=== PATIENT | female | born 1990 | race Caucasian/White ===

== ENCOUNTER 2024-05-05 06:43 | Emergency (ER) | payer OTHER, SELFPAY ==
--- NOTE | 2024-05-05 08:16 | ED.GENMED ---
History of Present Illness
General
Chief Complaint: Problems
Source: patient and spouse
Exam Limitations: none
Time Seen by Provider: 05/05/24 07:54
Nursing documentation reviewed up to this point in time: agreed with
History of Present Illness
History of Present Illness:
33-year-old female presents emergency room complaining of vaginal bleeding and cramping. She is 12 weeks . G1, P0. Is seen her OB and has had an ultrasound recently. She called her OB and was directed to the emergency department today.
Past History
Past History
ED Past Medical History: None
ED Past Surgical History: None
Social History
Tobacco: Non-smoker
Personal: Single
Family History
Family History: Other (Not relevant)
Phy Exam
Physical Exam
Physical Exam:
Physical Exam
General: no apparent distress, not acutely ill
Neck: supple. no meningeal signs. normal posterior pharynx
Heart: equal radial pulses.
HEENT: EOMI
Lungs: no acute respiratory distress.
Abdomen: normal bowel sounds. not tender. no CVAT
Neuro: alert and oriented. no focal neurological deficits
Skin: no rash
Psychiatric: well kept. interactive and cooperative
Extremities: no edema. good distal pulses
Course
Orders/Labs/Results
Orders:
Orders
05/05/24 07:54
Type+Screen Urgent
HCG, Beta Quantitative [Beta HCG Quantitative] Urgent
Is this a screen?: No
05/05/24 07:55
Complete Blood Count/With Diff Urgent
05/05/24 07:56
US 1st Trimester Urgent
Comment: for placement services
Reason For Exam: vaginal bleeding, 12 wks preg
05/05/24 07:57
Lactated Ringers [Lr] 1,000 ml IV BOLUS
05/05/24 08:10
Vital Signs
Initial and Last Documented VS:
Initial Vital Signs
Temp
98.2 F
05/05/24 06:50
Last Documented Vital Signs
Temp Pulse Resp BP Pulse Ox
98.2 F 89 18 112/70 100
05/05/24 06:50 05/05/24 10:00 05/05/24 10:00 05/05/24 10:00 05/05/24 10:00
Information
Weeks gestation: Weeks: (12)
Location: Location: ([facility])
MDM/Problems Addressed
Differential Diagnosis Includes:
Threatened miscarriage, Rh incompatibility
MDM/Problems Addressed:
33-year-old female with third miscarriage, vaginal bleeding, a positive blood type per patient history from outpatient labs. Discussed with OB, who recommends outpatient follow-up.
*Radiology
Radiology exam reviewed: radiology read reviewed (Ultrasound shows 12-week 2-day IUP with heart rate 156)
*Pulse Oximetry
Patient hypoxic: no
*Critical Care Note
Total Time (30-74mins, 75-104mins- exclusive of procedures): Not Applicable
Data Reviewed
Review of Other/Old Records Reveals: Labs (A positive blood type)
Source: patient and records
Patient Management
Discussion with other providers: Wax Blender (BAG SEALER, Dr. Shah, recommends discharge with outpatient follow-up)
Escalation/DeEscalation of care consider admission/obs:
Admit not indicated
ED Attending Note
-
Portions of this chart may have been created with voice recognition software.� Occasional wrong word or��sound alike� substitutions may have occurred due to the inherent limitations of voice recognition software.
Discharge Plan
Departure
Patient Disposition: Home (Routine Discharge)
Date of Disposition: 05/05/24
Time of Disposition: 10:10
Patient with high blood pressure during this ER visit?: No
Condition: Good
Discharge Problem:
Threatened miscarriage
Instructions: Threatened Miscarriage (DC)
Prescriptions:
No Action
ibuprofen 800 MG tablet
800 mg PO Q6HPRN PRN (Reason: ain) Qty: 14 0RF
Referrals:
Herb Koo I., DO [Family Provider] -
Parul Rosas, [Active] - Call in 1-3 days for appt
Interventions
Interventions:
*Risk Screen - Suicide Last Done: 05/05/24 07:35
*General Assessment Last Done: 05/05/24 07:35
*Neglect/Abuse Screening Last Done: 05/05/24 06:50
ED- Fall Risk Assessment Last Done: 05/05/24 07:35
*Nursing Disposition Last Done: 05/05/24 10:38
ED-Female Genitourinary Assessment Last Done: 05/05/24 07:35
Discharge Date and Time
Discharge Date/Time: 05/05/24 10:30
Print Language: THAI
[2024-05-05 10:00] VITALS: BP 112/70
== END 2024-05-05 10:30 | disposition home or self-care (01) ==
LOC: EMR 06:43
PROVIDERS: EMERGENCY PHYSICIAN Emergency Medicine; FAMILY PHYSICIAN Internal Medicine
DX: O20.0 Threatened abortion (principal); Z3A.12 12 weeks gestation of pregnancy
CPT/HCPCS: 99284; 76801

== ENCOUNTER → 2024-05-09 08:47 | Outpatient (REF) | payer OTHER, SELFPAY | LOC: PNTC 08:47 | PROVIDERS: ATTENDING PHYSICIAN Student in an Organized Health Care Education/Training Program | DX: Z36.0 Encounter for antenatal screening for chromosomal anomalies (principal); Z36.82 Encounter for antenatal screening for nuchal translucency | CPT/HCPCS: 76801; 76813 ==

== ENCOUNTER 2024-05-11 13:42 | Day surgery (SDC) | payer OTHER, SELFPAY ==
[2024-05-11] VITALS (15 sets, daily range): BP systolic 108–118; BP diastolic 68–78; BMI 26.1
--- NOTE | 2024-05-11 09:06 | ED.GENMED ---
History of Present Illness
<Denia Goddard PA-C - Last Filed: 05/11/24 12:19>
General
Chief Complaint: Problems
Source: patient
Exam Limitations: none
Time Seen by Provider: 05/11/24 09:03
Nursing documentation reviewed up to this point in time: agreed with
History of Present Illness
History of Present Illness:
33-year-old female who is 12 weeks presents emergency department today with vaginal bleeding and cramping for the past week. Patient reports that she was seen in our emergency department a few days ago for this issue and had normal
ultrasound 2 days ago as well as in the emergency department on Tuesday. Patient also notes that she noted normal heart tones yesterday. She is Rh+. She notes that the bleeding got a lot heavier starting yesterday and noted that her cramping a
lot more frequent and severe, and this morning the cramping became constant. She also has intermittent lightheadedness and dizziness as well as nausea. She has had no vomiting. She has had no syncopal episodes. She currently denies any dizziness
or lightheadedness in the hospital bed currently but states that she walk around she will feel this. She follows with [facility] and saw Dr. Rosas yesterday in the office and was told to be to the ER should her bleeding acutely worsen.
Patient has no chronic medical conditions other than complex migraines which she will get every 1 to 2 years. She takes no daily medications other than prenatals.
Past History
<Denia Goddard PA-C - Last Filed: 05/11/24 12:19>
Past History
ED Past Medical History: None
ED Past Surgical History: None
Social History
Tobacco: Non-smoker
Personal: Single
Family History
Family History: Other (Not relevant)
Review of Systems
<Denia Goddard PA-C - Last Filed: 05/11/24 12:19>
Review of Systems
All Other Systems: ROS reviewed and negative except as documented in HPI and ROS
Phy Exam
<Denai Goddard PA-C - Last Filed: 05/11/24 12:19>
Physical Exam
Physical Exam:
General: Patient is well appearing and in no acute distress; non-toxic
Skin: Warm and dry, no rashes or lesions
Head: Normocephalic, atraumatic
Eyes: Sclera non-icteric. EOMs intact. PERRLA.
Cardiac: Regular rate and rhythm, no murmurs
Peripheral Vascular: No lower extremity swelling or edema
Pulm: Normal respiratory effort, no wheezes, rales, rhonchi
Abdomen: No abdominal tenderness to palpation
Genitourinary: Pelvic/adnexal tenderness to palpation noted, active bleeding noted at the vaginal introitus with clots visualized
Neuro: CN II-XII intact, no focal neurologic deficits.
Psychiatric: Appropriate mood and affect.
Course
<Denia Goddard PA-C - Last Filed: 05/11/24 12:19>
Orders/Labs/Results
Orders:
Orders
05/11/24 09:23
Beta HCG Quantitative Urgent
Is this a screen?: No
Lactated Ringers [Lr] 1,000 ml IV BOLUS
US W Transvaginal Urgent
Reason For Exam: pelvic cramping, bleeding
05/11/24 09:28
Type+Screen Urgent
Complete Blood Count/With Diff Urgent
Comprehensive Metabolic Panel Urgent
Lipase Urgent
Comment: ADD ON
05/11/24 09:47
ABO2 Urgent
BBK Wristband Number:
Associate notified that ABO2 has been ordered: [id number]
Date: 05/11/24
Time: 09:48
Pulp Refiner Operator ID: [id number]
05/11/24 10:38
Acetaminophen 1000MG/100Ml [Ofirmev] 1,000 mg in 100 ml IV ONCE
Acetaminophen IV Indication:: ED Narcotic Naive Pt-ONCE
05/11/24 10:46
Add On- LAB Urgent
Tests Added?: lipase
05/11/24 10:52
Urinalysis Reflex To Culture Urgent
05/11/24 12:13
Piperacillin/Tazo 3.375 Gram [Zosyn] 3.375 gram in 50 ml IV NOW
05/11/24 13:00
Doxycycline Hyclate [Vibramycin] 100 mg 0.9% Sodium Chloride 250 ml [Nss] 250 ml IV NOW
Abnormal Lab Results
05/11/24
09:28
WBC 23.9 H 10^3/uL
(4.8-10.8)
RBC 3.76 L 10^6/uL
(4.20-5.40)
Hgb 11.8 L g/dL
(12.0-16.0)
Hct 32.3 L %
(37.0-47.0)
MCH 31.4 H pg
(27.0-31.0)
Abs Immat Gran (auto) 0.2 H 10^3/uL
(0-0.05)
Absolute Neuts (auto) 21.5 H 10^3/uL
(1.4-6.5)
Absolute Monos (auto) 1.0 H 10^3/uL
(0.1-0.6)
Immature Gran % 1.0 H %
(0-0.5)
Neutrophils % 89.7 H %
(42.2-75.2)
Lymphocytes % 4.9 L %
(20.5-51.1)
Carbon Dioxide 20 L mmol/L
(22-30)
BUN 6 L mg/dl
(7-17)
Creatinine 0.5 L mg/dL
(0.6-1.0)
Glucose 104 H mg/dl
(70-99)
05/11/24 09:28
05/11/24 09:28
Vital Signs
Initial and Last Documented VS:
Initial Vital Signs
Temp Pulse Resp BP Pulse Ox
98.2 F 95 18 109/71 100
05/11/24 08:49 05/11/24 08:49 05/11/24 08:49 05/11/24 08:49 05/11/24 08:49
Last Documented Vital Signs
Temp Pulse Resp BP Pulse Ox
98.2 F 92 13 115/72 99
05/11/24 08:56 05/11/24 12:00 05/11/24 12:00 05/11/24 12:00 05/11/24 10:00
Information
Weeks gestation: N/A
Location: N/A
<Alvaro Dukes MD - Last Filed: 05/11/24 12:54>
Orders/Labs/Results
Orders:
Orders
05/11/24 09:23
Beta HCG Quantitative Urgent
Is this a screen?: No
Lactated Ringers [Lr] 1,000 ml IV BOLUS
US W Transvaginal Urgent
Reason For Exam: pelvic cramping, bleeding
05/11/24 09:28
Type+Screen Urgent
Complete Blood Count/With Diff Urgent
Comprehensive Metabolic Panel Urgent
Lipase Urgent
Comment: ADD ON
05/11/24 09:47
ABO2 Urgent
BBK Wristband Number:
Associate notified that ABO2 has been ordered: [id number]
Date: 05/11/24
Time: 09:48
Pulp Refiner Operator ID: [id number]
05/11/24 10:38
Acetaminophen 1000MG/100Ml [Ofirmev] 1,000 mg in 100 ml IV ONCE
Acetaminophen IV Indication:: ED Narcotic Naive Pt-ONCE
05/11/24 10:46
Add On- LAB Urgent
Tests Added?: lipase
05/11/24 10:52
Urinalysis Reflex To Culture Urgent
05/11/24 12:13
Piperacillin/Tazo 3.375 Gram [Zosyn] 3.375 gram in 50 ml IV NOW
05/11/24 13:00
Doxycycline Hyclate [Vibramycin] 100 mg 0.9% Sodium Chloride 250 ml [Nss] 250 ml IV NOW
Abnormal Lab Results
05/11/24
09:28
WBC 23.9 H 10^3/uL
(4.8-10.8)
RBC 3.76 L 10^6/uL
(4.20-5.40)
Hgb 11.8 L g/dL
(12.0-16.0)
Hct 32.3 L %
(37.0-47.0)
MCH 31.4 H pg
(27.0-31.0)
Abs Immat Gran (auto) 0.2 H 10^3/uL
(0-0.05)
Absolute Neuts (auto) 21.5 H 10^3/uL
(1.4-6.5)
Absolute Monos (auto) 1.0 H 10^3/uL
(0.1-0.6)
Immature Gran % 1.0 H %
(0-0.5)
Neutrophils % 89.7 H %
(42.2-75.2)
Lymphocytes % 4.9 L %
(20.5-51.1)
Carbon Dioxide 20 L mmol/L
(22-30)
BUN 6 L mg/dl
(7-17)
Creatinine 0.5 L mg/dL
(0.6-1.0)
Glucose 104 H mg/dl
(70-99)
05/11/24 09:28
11/01/24 09:28
Vital Signs
Initial and Last Documented VS:
Initial Vital Signs
Temp Pulse Resp BP Pulse Ox
98.2 F 95 18 109/71 100
05/11/24 08:49 05/11/24 08:49 05/11/24 08:49 05/11/24 08:49 05/11/24 08:49
Last Documented Vital Signs
Temp Pulse Resp BP Pulse Ox
98.2 F 92 13 115/72 99
05/11/24 08:56 05/11/24 12:00 05/11/24 12:00 05/11/24 12:00 05/11/24 10:00
Mickeylt;Denia Goddard PA-C - Last Filed: 05/11/24 12:19>
MDM/Problems Addressed
Differential Diagnosis Includes:
ddx include implantation bleeding, subchorionic hemorrhage, threatened miscarriage, endometritis,
MDM/Problems Addressed:
33-year-old female who is 12 weeks presents emergency department today with vaginal bleeding and cramping for the past week. She had normal ultrasounds this past week. She feels like her pain wraps around to her back. She has had
nausea and intermittent vomiting as well. On exam, she is well-appearing, no acute distress, no true abdominal tenderness noted but does have adnexal tenderness and bleeding and clots visualized on exam. CBC reveals leukocytosis to 23, considering
patient's nausea, will send off for full abdominal ultrasound and urinalysis as well. Patient given lactated Ringer's and IV Tylenol.
Obstetrical ultrasound reveals spontaneous with a small amount of soft tissue and fluid in the uterus which is more likely hemorrhage and clot rather than retained products of conception. Dr. Rosas made aware who is taking patient to the
OR today. Considering white blood cell count, nausea and pain, will treat with antibiotics to cover for potential endometritis. Will give dose of Zosyn now. Patient stable for transfer to the OR.
Chronic conditions affecting care:
n/a
<Denia Goddard PA-C - Last Filed: 05/11/24 12:19>
*Pulse Oximetry
Patient hypoxic: no
*Critical Care Note
Total Time (30-74mins, 75-104mins- exclusive of procedures): Not Applicable
Data Reviewed
Review of Other/Old Records Reveals: Records (Reviewed ER physician documentation from 05/05/2024, patient seen for threatened miscarriage, she had an ultrasound which demonstrated single intrauterine with a closed cervical os and normal
heart rate)
Source: patient (No comparison labs noted, noted lab work from [facility] done at the beginning of April noting a hemoglobin of 12)
<Denia Goddard PA-C - Last Filed: 05/11/24 12:19>
Patient Management
Discussion with other providers: Store Operations Associate (Dr. Rosas)
<Denia Goddard PA-C - Last Filed: 05/11/24 12:19>
Update Note
Update Note:
Update white blood cell count 23, considering patient's nausea, as well as her pain that wraps around to the back, will send off for general abdominal ultrasound as well, will add on urinalysis
ED Attending Note
<Denia Goddard PA-C - Last Filed: 05/11/24 12:19>
-
Portions of this chart may have been created with voice recognition software.� Occasional wrong word or��sound alike� substitutions may have occurred due to the inherent limitations of voice recognition software.
<Alvaro Dukes MD - Last Filed: 05/11/24 12:54>
ED Attending Note
Patient seen and examined by attending physician: Yes
I performed the substantive portion of visit, reviewed & personally made and approve the management plan that is documented in note by myself or CHRISTIE.: Yes
ED Attending Note:
33-year-old female 12 weeks presents with increased vaginal bleeding. Started having bleeding 6 days ago. Moderate at that time. Then became light. More severe the last 24 hours. Like a heavy menses maybe even a little worse.
Some mild lower abdominal pain. Has had 2 ultrasounds that are stable. Is Rh+. Followed by obstetrics locally.
On exam patient is nontoxic in no distress. Stable vital signs. No respiratory distress. Warm and dry. Perfusing well. Abdomen is soft with mild nonlocalizing lower abdominal tenderness. No rebound or guarding no mass or hernia.
Threatened AB on history. Clinically stable. Type and screen, repeat ultrasound, obstetrics involved.
1045.... Hemoglobin stable. However significant leukocytosis. Possibly reactive however with increasing pain radiating to the back would consider other secondary etiology causing these issues. Added abdominal ultrasound.
At ultrasound patient had a miscarriage. Elected to hold on abdominal ultrasound. Significant leukocytosis likely reactive. However does have a mild bandemia. Will cover with antibiotics. Doubt other secondary etiology except for her
miscarriage. Discussed with CLEANING TEAM MEMBER. They are admitting her to the operating room
Discharge Plan
Departure
Patient Disposition: OR
Date of Disposition: 05/11/24
Time of Disposition: 12:13
Presentation/result/management discussed w/ accepting MD/: Dr. Rosas
Patient with high blood pressure during this ER visit?: No
Condition: Fair
Discharge Problem:
Spontaneous miscarriage
Prescriptions:
No Action
ibuprofen 800 MG tablet
800 mg PO Q6HPRN PRN (Reason: ain) Qty: 14 0RF
Referrals:
Herb Koo DO [Family Provider] -
Interventions
Interventions:
*Risk Screen - Suicide Last Done: 05/11/24 08:56
*General Assessment Last Done: 05/11/24 08:56
*Neglect/Abuse Screening Last Done: 05/11/24 08:56
*ED COVID-19 Vaccine History Last Done: 05/11/24 12:41
ED-Female Genitourinary Assessment Last Done: 05/11/24 10:25
Discharge Date and Time
Print Language: PASHTO
[2024-05-11] MEDS: LR 1000 IV (09:33)
[2024-05-11 09:56] LABS: ALT (SGPT) 13 U/L (0-35); AST (SGOT) 18 U/L (14-36); Alkaline Phosphatase 95 U/L (38-126); Blood Urea Nitrogen 6 mg/dl (7-17); Calcium 9.4 mg/dl (8.4-10.2); Carbon Dioxide 20 mmol/L (22-30); Chloride 101 mmol/L (98-107); Glucose 104 mg/dl (70-99); Potassium 3.6 mmol/L (3.5-5.1); Sodium 137 mmol/L (135-145); Total Bilirubin 0.5 mg/dl (0.2-1.3); Total Protein 6.7 g/dl (6.3-8.2); eGFR > 60.00
[2024-05-11 10:08] LABS: Hematocrit 32.3 % (37.0-47.0); Hemoglobin 11.8 g/dL (12.0-16.0); Mean Corp Hgb Conc. 36.5 g/dL (33.0-37.0); Mean Corpuscular Hgb 31.4 pg (27.0-31.0); Mean Corpuscular Volume 85.9 fL (81.0-99.0); Mean Platelet Volume 9.1 fL (7.4-10.4); Platelet Count 375 10^3/uL (130-400); Red Blood Cell Count 3.76 10^6/uL (4.20-5.40); White Blood Cell Count 23.9 10^3/uL (4.8-10.8)
[2024-05-11 10:37] LABS: % Basophils 0.3 % (0-2); % Lymphocytes 4.9 % (20.5-51.1); % Monocytes 4.1 % (1.7-9.3); % Neutrophils 89.7 % (42.2-75.2); Absolute Basophils 0.1 10^3/uL (0-0.2); Absolute Immature Granulocytes 0.2 10^3/uL (0-0.05); Absolute Lymphocytes 1.2 10^3/uL (1.2-3.4); Absolute Neutrophils 21.5 10^3/uL (1.4-6.5); Nucleated Red Blood Cells % 0 %
[2024-05-11] MEDS: OFIRMEV 100 IV (10:45)
[2024-05-11 11:34] LABS: Lipase 49 U/L (23-300)
[2024-05-11] MEDS: ZOSYN 50 IV (12:34)
--- NOTE | 2024-05-11 12:36 | HPS.HSE ---
Family Physician
-
Family Physician: Herb Koo
Chief Complaint
-
incomplete miscarriage
History of Present Illness
Patient is a 33yo @12.6 weeks who presents to the ED with complaints of vaginal bleeding. Patient has had vaginal bleeding for the last week, but it increased overnight with passage clots and heavy bleeding. She also had an increase in cramping
overnight and says it felt like contractions. While in ultrasound, patient passed tissue and there was not a gestational sac or tissue present on the US afterwards. There were clots seen in the uterine cavity. She had an US last Tuesday and
an US 2 days ago that showed a viable IUP. She was seen in the office yesterday and FHT were heard. In the ED, pt noted to have a white count of 23. She denies fevers or chills and her abdominal pain has subsided since passage of tissue in US. She
denies dizziness, lightheadedness, chest pain, or shortness of breath.
PMH: migraines
Meds: PNV
All: bees
Surghx: lap appy, wisdom teeth
Famhx: non contributory
Socialhx: denies tobacco, etoh, or illicit drug use
Medical History
Past Medical History
Past Medical History: Reports Other
Additional Past Medical History:
migraines
Past Surgical History: Reports Appendectomy
Additional Past Surgical History:
wisdom teeth
Social History
Tobacco: Non-smoker
Alcohol: None
Drug: None
Family History
Family History: Not pertinent
Allergies / Home Medications
Allergies reflects when Allergies were last updated in [facility].
Home Medications with original date entered in [facility]
Allergy/Medication List:
All: bees
Meds: PNV
Review of Systems
-
A 12 point ROS was completed and negative except as noted: Yes
Physical Exam
Vital Signs
Vital Signs
Temp Pulse Resp BP Pulse Ox
98.2 F 92 13 115/72 99
05/11/24 08:56 05/11/24 12:00 05/11/24 12:00 05/11/24 12:00 05/11/24 10:00
Physical Exam
General: Well Developed and No Apparent Distress
HEENT: NormoCephalic
Respiratory: Non Labored Respirations
Cardiac: Regular Rhythm
GI: Soft and Non Tender
Genito-urinary: Vaginal Bleeding and Other (brisk vaginal bleeding with clots/tissue present in vaginal vault. Unable to be removed at bedside)
Skin: Warm
Neuro: Awake and Alert
Psych: Other (tearful)
Laboratory Results
-
05/11/24 09:28
05/11/24 09:28
Laboratory Results
Total Bilirubin 0.5 mg/dl (0.2-1.3) 05/11/24 09:28
AST 18 U/L (14-36) 05/11/24 09:28
ALT 13 U/L (0-35) 05/11/24 09:28
Alkaline Phosphatase 95 U/L (38-126) 05/11/24 09:28
Lipase 49 U/L (23-300) 05/11/24 09:28
Impression/Plan
-
IMPRESSION:
Patient is a 33yo @12.6 weeks with incomplete
PLAN:
- Patient passed tissue in US, however on speculum exam brisk bleeding with tissue/clots in vaginal vault. Unable to visualize cervix secondary to blood in vault. Blood was suctioned and some tissue removed with ring forcep, but unable to completely
remove and bleeding continues. Because of retained tissue and brisk bleeding, recommend proceed with D&E. Risks, benefits, and alternatives discussed including bleeding, infection, damage to surrounding structures and need for re-operation. She is
agreeable to blood transfusion if needed and aware of the risks. Consent was signed and OR notified.
- Patient with elevated WBC count, but no other signs of infection. Zosyn given in the ED. Will give patient preop antibiotics of 100mg IV doxycycline and will send 200mg po Doxycycline for her take before bed this evening. Strict return precautions
were given if patient were to develop an infection. Will consider repeated CBC in one week to make sure it has resolved
--- NOTE | 2024-05-11 14:29 | OR.RPT ---
Operative Report
Operative Report
Preop diagnosis: incomplete
Postop diagnosis: same
Procedure: Dilation and evacuation
Surgeon: Ralph
Anesthesia: General, Dr. Mckenzie
Complications: none
Pathology: products of conception
EBL: 100mL
Urine output: 100mL
Findings: placental tissue and blood clot sitting in vaginal vault, products of conception removed from uterine cavity with suction curettage
Indication: Patient is a 33yo @12.6 weeks who presented to the ED with complaints of heavy vaginal bleeding and cramping. Patient started having bleeding one week ago and had an ultrasound last Tuesday that showed a viable intrauterine
. She also had a nuchal translucency this week that was normal with a normal intrauterine . Last night, patient started having increased bleeding with passage of clots and pelvic pain that felt like contractions. While getting the
ultrasound today, she passed tissue in the toilet. US showed no fetus or gestational sac. On speculum exam in the ED, there was brisk bleeding with products of conception in the vaginal vault. They were attempted to be removed, but were not able to.
A dilation and evacuation was recommended to remove remaining products of conception. Risks, benefits, and alternatives were discussed and all questions answered. Consents were signed.
Procedure:
Patient was taken to the operating room and placed under general anesthesia. She was placed in the dorsal lithotomy position with Robert type stirrups. She was given 100mg Doxycycline IV prior to the procedure for antibiotic prophylaxis. She was
prepped and draped in the normal sterile fashion. The bladder was drained with a straight catheter yielding 100cc of clear yellow urine. A weight speculum was placed in the posterior aspect of the vagina. Multiple blood clots and placenta tissue
present in vaginal vault. Placental tissue was grasped with ring forceps and removed. The cervix was then visualized and noted to be about 1cm dilated. The anterior lip of the cervix was grasped with an Allis clamp. An 11mm curved rigid suction
curette was introduced to the fundus. Vacuum was applied until it was in the green. A suction curettage was then performed with a rotational motion in all quadrants of the uterus. Multiple passes were performed until all products of conception were
removed. Care was taken not to introduce the suction curette with suction applied. There was a gush of blood and bimanual massage was performed with improvement in bleeding. The Allis was removed from the anterior lip of the cervix. Hemostasis
noted. All instruments were removed from the vagina. All sponge and instrument counts were correct times 2. Patient was taken to PACU in stable condition.
== END 2024-05-11 15:47 | disposition home or self-care (01) ==
LOC: PACU 13:42
PROVIDERS: Physician Assistant; ATTENDING PHYSICIAN Student in an Organized Health Care Education/Training Program; EMERGENCY PHYSICIAN Emergency Medicine; FAMILY PHYSICIAN Internal Medicine
DX: O03.4 Incomplete spontaneous abortion without complication (principal); Z3A.12 12 weeks gestation of pregnancy
CPT/HCPCS: 59812; 88305; 76801; 76817; 80053; 83690; 85025; 86850; 86900; 86901; 96361; 96374; 96375; 99284

== ENCOUNTER → 2025-05-01 10:14 | Outpatient (REF) | payer OTHER, SELFPAY | LOC: RCS 10:14 | PROVIDERS: ATTENDING PHYSICIAN Internal Medicine Cardiovascular Disease; FAMILY PHYSICIAN Internal Medicine; REFERRING PHYSICIAN Obstetrics & Gynecology | DX: R00.2 Palpitations (principal) | CPT/HCPCS: 93306 ==

== ENCOUNTER 2025-05-02 11:13 | Observation (INO) | payer OTHER, SELFPAY ==
[2025-05-02 11:23] VITALS: BMI 29.4
[2025-05-02 11:29] VITALS: BP 133/75
[2025-05-02 12:06] LABS: Hematocrit 29.9 % (37.0-47.0); Hemoglobin 10.3 g/dL (12.0-16.0); Mean Corp Hgb Conc. 34.4 g/dL (33.0-37.0); Mean Corpuscular Volume 90.3 fL (81.0-99.0); Platelet Count 348 10^3/uL (130-400); Red Cell Dist. Width 12.8 % (11.5-14.5)
[2025-05-02 12:15] LABS: ALT (SGPT) 18 U/L (0-35); AST (SGOT) 21 U/L (14-36); Albumin 3.7 g/dl (3.5-5.0); Alkaline Phosphatase 101 U/L (38-126); Blood Urea Nitrogen 4 mg/dl (7-17); Calcium 9.2 mg/dl (8.4-10.2); Carbon Dioxide 21 mmol/L (22-30); Chloride 108 mmol/L (98-107); Estimated Creatinine Clearance > 125 ml/min; Glucose 95 mg/dl (70-99); Potassium 3.9 mmol/L (3.5-5.1); Sodium 135 mmol/L (135-145); Total Protein 6.4 g/dl (6.3-8.2); eGFR > 60.00
== END 2025-05-02 12:40 | disposition home or self-care (01) ==
LOC: PNTC-IN 11:13
PROVIDERS: ADMITTING PHYSICIAN Obstetrics & Gynecology
DX: O16.3 Unspecified maternal hypertension, third trimester (principal); Z3A.32 32 weeks gestation of pregnancy
CPT/HCPCS: 80053; 82570; 84156; 85027; 86850; 86900; 86901; G0378

== ENCOUNTER 2025-06-14 16:43 | Inpatient (IN) | payer OTHER, SELFPAY ==
[2025-06-14 17:08] VITALS: BP 118/66; BMI 30.4
[2025-06-14 17:59] LABS: Hematocrit 37.7 % (37.0-47.0); Hemoglobin 13.2 g/dL (12.0-16.0); Mean Corp Hgb Conc. 35.0 g/dL (33.0-37.0); Mean Corpuscular Volume 88.3 fL (81.0-99.0); Nucleated Red Blood Cells % 0 %; Platelet Count 322 10^3/uL (130-400); Red Cell Dist. Width 15.2 % (11.5-14.5)
[2025-06-14] MEDS: PENICILLIN 110 UNITS IV (18:00)
[2025-06-14] MEDS: PENICILLIN 55 UNITS IV (23:06)
[2025-06-15] MEDS: FENTANYL/BUPIVACAINE 100 EPIDURAL (00:45)
[2025-06-15] MEDS: SUBLIMAZE 100 MCG EPIDURAL (00:45)
[2025-06-15] MEDS: PEPCID 20 MG PO (02:13)
[2025-06-15] MEDS: PITOCIN 30 UNITS/NSS 500 ML IV (02:14)
[2025-06-15] MEDS: LR 1000 IV ×2 (02:19→06:44)
[2025-06-15] MEDS: PENICILLIN 55 UNITS IV ×2 (03:15→07:26)
[2025-06-15] MEDS: COLACE 100 MG PO (19:47)
[2025-06-15] MEDS: MOTRIN 600 MG PO (22:10)
[2025-06-16 04:48] LABS: Hematocrit 33.3 % (37.0-47.0); Hemoglobin 11.4 g/dL (12.0-16.0)
[2025-06-16] MEDS: PRENATAL PLUS 1 TABLET PO (07:53)
[2025-06-16] MEDS: COLACE 100 MG PO ×2 (07:53→19:23)
[2025-06-16] MEDS: PEPCID 20 MG PO (07:55)
[2025-06-16] MEDS: PEPCID PO (07:55)
[2025-06-16] MEDS: MOTRIN 600 MG PO ×2 (08:08→19:23)
[2025-06-17] MEDS: PRENATAL PLUS 1 TABLET PO (07:53)
[2025-06-17] MEDS: COLACE 100 MG PO (07:53)
[2025-06-17] MEDS: PEPCID 20 MG PO (07:53)
[2025-06-17] MEDS: MOTRIN 600 MG PO (08:52)
[2025-06-18 12:28] LABS: Syphilis/T. pallidum Ab Reflex Negative (Negative)
== END 2025-06-17 13:05 | disposition home or self-care (01) | DRG 807 ==
LOC: LDRP 16:43
PROVIDERS: ADMITTING PHYSICIAN Obstetrics & Gynecology; FAMILY PHYSICIAN Internal Medicine
PROC: 10E0XZZ Delivery of Products of Conception, External Approach (ICD-10-PCS; 2025-06-15)
PROC: 0HQ9XZZ Repair Perineum Skin, External Approach (ICD-10-PCS; 2025-06-15)
DX: O99.824 Streptococcus B carrier state complicating childbirth (principal); Z37.0 Single live birth; Z3A.38 38 weeks gestation of pregnancy; O70.0 First degree perineal laceration during delivery
CPT/HCPCS: 36415; 85014; 85018; 85025; 86780; 86850; 86900; 86901